=== PATIENT | female | born 1970 | race Caucasian/White ===

== ENCOUNTER → 2018-11-19 | Outpatient (CLI) | payer OTHER ==
[2018-11-19 08:14] LABS: ABSOLUTE BASOPHILS # (AUTO) 0.1 10^3/uL (0.0-0.2); ABSOLUTE EOSINOPHILS # (AUTO) 0.3 10^3/uL (0.0-0.6); ABSOLUTE LYMPHOCYTES (AUTO) 1.1 10^3/uL (0.5-4.7); ABSOLUTE MONOCYTES (AUTO) 0.6 10^3/uL (0.1-1.4); ABSOLUTE NEUT (AUTO) 2.9 10^3/uL (1.7-8.2); BASOPHILS % (AUTO) 1.5 % (0-2); EOSINOPHILS % (AUTO) 6.2 % (0-6); HEMATOCRIT 40.9 % (36.0-47.0); HEMOGLOBIN 13.4 g/dL (12.0-15.5); LYMPHOCYTES % (AUTO) 22.3 % (13-45); MEAN CORPUSCULAR HEMOGLOBIN 30.5 pg (27.0-33.4); MEAN CORPUSCULAR HGB CONC 32.8 g/dL (32.0-36.0); MEAN CORPUSCULAR VOLUME 93 fl (80-97); PLATELET COUNT 232 10^3/uL (150-450); RED BLOOD COUNT 4.39 10^6/uL (3.72-5.28); RED CELL DISTRIBUTION WIDTH 13.9 % (11.5-14.0); TOTAL CELLS COUNTED % (AUTO) 100 %; WHITE BLOOD COUNT 5.1 10^3/uL (4.0-10.5)
[2018-11-19 08:34] LABS: ALBUMIN 4.9 g/dL (3.5-5.0); ALKALINE PHOSPHATASE 68 U/L (38-126); ANION GAP 14 (5-19); ASPARTATE AMINO TRANSFERASE 26 U/L (14-36); BILIRUBIN,DIRECT 0.1 mg/dL (0.0-0.4); BILIRUBIN,TOTAL 0.7 mg/dL (0.2-1.3); BLOOD UREA NITROGEN 15 mg/dL (7-20); CALCIUM 9.8 mg/dL (8.4-10.2); CARBON DIOXIDE 23 mmol/L (22-30); CHLORIDE 103 mmol/L (98-107); CHOLESTEROL 227.02 mg/dL (0-200); GLUCOSE 86 mg/dL (75-110); POTASSIUM 4.7 mmol/L (3.6-5.0); TOTAL PROTEIN 8.3 g/dL (6.3-8.2); TRIGLYCERIDES 69 mg/dL (<150)
[2018-11-19 08:45] LABS: DIRECT LDL 113 mg/dL (<100)
== END ==
LOC: LAB 07:59
PROVIDERS: ATTEND Family Medicine
DX: Z13.1 Encounter for screening for diabetes mellitus (principal); E03.9 Hypothyroidism, unspecified; Z13.220 Encounter for screening for lipoid disorders
CPT/HCPCS: 36415; 80053; 80061; 84443; 85025

== ENCOUNTER → 2018-12-27 | Outpatient (CLI) | payer OTHER ==
--- NOTE | 2018-12-27 15:20 | RADIOLOGY REPORT (SQ) ---
EXAM DESCRIPTION: CAROTID DOPPLER COMPLETED DATE/TIME: 12/27/2018 3:03 pm REASON FOR STUDY: SYNCOPE WITH COLLAPSE R55 SYNCOPE AND COLLAPSE COMPARISON: None. TECHNIQUE: Grayscale ultrasound, Doppler velocity and spectra, and color Doppler images acquired of the extra-cranial carotid and vertebral arteries. Images stored on PACS. LIMITATIONS: None. FINDINGS: RIGHT CAROTID CCA Velocities: Within normal limits. ICA Velocities Peak systolic 117 cm/s. End diastolic 63 cm/s. Proximal ICA/CCA peak systolic ratio 1.20. Spectra normal. No significant plaque. LEFT CAROTID CCA Velocities: Within normal limits. ICA Velocities Peak systolic 111 cm/s. End diastolic 57 cm/s. Proximal ICA/CCA peak systolic ratio 1.11. Spectra normal. No significant plaque. VERTEBRAL ARTERIES: Antegrade flow. Normal waveforms. SUBCLAVIAN ARTERIES: No finding. OTHER: No other significant finding. IMPRESSION: NO HEMODYNAMICALLY SIGNIFICANT STENOSIS. COMMENT: Quality ID #[id number]: Velocity criteria are extrapolated from the diameter data as defined by t he Society of Radiologists in Ultrasound Consensus Conference. Radiology 2003: 229; 340-346. TECHNICAL DOCUMENTATION: JOB ID: [id number]- All Rights Reserved Reading location - IP/workstation name: [email or web address]
--- NOTE | 2018-12-27 18:08 | XCELERA REPORT ---
[address] [address] Transthoracic Echocardiogram Report Name: ALFREDO LAKE Age: 48 yrs Gender: Female : 1970 Patient Status: Outpatient Patient Location: Study Date: 12/27/2018 11:22 AM Height: 60 in Weight: 135 lb BSA: 1.6 m2 Reason For Study: SYNCOPE WITH COLLAPSE Ordering Physician: LINDA JIANG Performed By: Kevyn Rico Interpretation Summary No structural heart disease to cause syncope and collapse. Normal LVEF with no LVH and no LV diastolic dysfunction. No increased LVOT gradient or , MVP. Unable to assess RVSP to r/o pulm hypertension. No RWMA to suggest CAD. No LA myxoma. Normal RV, no suggestion of ARVC. MMode/2D Measurements & Calculations RVDd: 2.8 cm LVIDd: 4.2 cm FS: 37.2 % Ao root diam: 2.9 cm IVSd: 0.82 cm LVIDs: 2.6 cm EDV(Teich): Ao root area: LVPWd: 0.95 cm 78.9 ml ESV(Teich): 6.4 cm2 25.6 ml LA dimension: 2.9 cm EF(Teich): 67.5 % LVLd ap4: 8.1 cm SV(MOD-sp4): EDV(MOD-sp4): 47.0 ml 69.0 ml LVLs ap4: 6.7 cm ESV(MOD-sp4): 22.0 ml EF(MOD-sp4): 68.1 % Doppler Measurements & Calculations MV E max ara: MV P1/2t max ara: Ao V2 max: LV V1 max P.5 cm/sec 101.2 cm/sec 149.3 cm/sec 5.5 mmHg MV A max ara: MV P1/2t: 79.4 msec Ao max P.9 mmHgLV V1 max: 94.0 cm/sec 117.3 cm/sec MV E/A: 1.1 MVA(P1/2t): 2.8 cm2 MV dec slope: 373.3 cm/sec2 MV dec time: 0.22 sec PA V2 max: PI end-d ara: MV P1/2t-pr_phl: 82.7 cm/sec 77.3 cm/sec 79.4 msec PA max P.7 mmHg Left Ventricle The left ventricle is normal in size. There is normal left ventricular wall thickness. The left ventricular ejection fraction is normal. LV EF is 65%. Doppler measurements suggest normal left ventricular diastolic function. No regional wall motion abnormalities noted. There is no thrombus. Right Ventricle The right ventricle is normal size. Atria The right atrium is normal. The left atrial size is normal. The interatrial septum is intact with no evidence for an atrial septal defect. Mitral Valve The mitral valve is normal in structure and function. There is no evidence of mitral valve prolapse. There is no mitral valve stenosis. There is no mitral regurgitation noted. Aortic Valve The aortic valve is trileaflet. The aortic valve opens well. There is no aortic valvular vegetation. There is no aortic valve stenosis. No aortic regurgitation is present. Tricuspid Valve The tricuspid valve is not well visualized secondary to technical limitations. There is a trace or physiologic amount of tricuspid regurgitation. Pulmonic Valve There is a trace or physiologic amount of pulmonic regurgitation. Great Vessels The aortic root is not well visualized. The inferior vena cava appeared normal. Effusions Minimal pericardial effusion. I WMSI = 1.00 % Normal = 100 Segments Size X - Cannot 2 - 4 - 1-2 small Interpret 1 - Normal Hypokinetic 3 - AkineticDyskinetic 3-5 moderate 5 - 6-14 large Aneurysmal 15-16 diffuse : LINDA JIANG, Sander
== END ==
LOC: SP 09:38
PROVIDERS: ATTEND Family Medicine
DX: R55 Syncope and collapse (principal)
CPT/HCPCS: 93306; 93880

== ENCOUNTER → 2019-01-28 | Outpatient (CLI) | payer OTHER | LOC: LAB 10:03 | PROVIDERS: ATTEND Family Medicine | DX: E03.9 Hypothyroidism, unspecified (principal) | CPT/HCPCS: 36415; 84443 ==

== ENCOUNTER → 2019-07-25 | Outpatient (CLI) | payer OTHER | LOC: OD 12:22 | PROVIDERS: ATTEND Family Medicine | DX: E03.9 Hypothyroidism, unspecified (principal); Z13.1 Encounter for screening for diabetes mellitus; Z13.220 Encounter for screening for lipoid disorders | CPT/HCPCS: 36415; 84436; 84443; 84480 ==

== ENCOUNTER → 2019-08-06 | Outpatient (CLI) | payer OTHER ==
--- NOTE | 2019-08-06 14:28 | WOMENS IMAGING REPORT ---
EXAM DESCRIPTION: BILAT DIG DX MAMMO NO CHG; U/S BREAST UNILATERAL, COMPL IMAGES COMPLETED DATE/TIME: 08/06/2019 1:11 pm; 08/06/2019 2:04 pm REASON FOR STUDY: N63.20 UNSPECIFIED LUMP IN THE LEFT BREAST, UNSPECIFIED QUADRANT; N63.[address] N63.20 UNSPECIFIED LUMP IN THE LEFT BREAST, UNSPECIFIED QUAD COMPARISON: 2019 EXAM PARAMETERS: Standard craniocaudal and mediolateral oblique views of each breast recorded using digital acquisition. True lateral and cone compression views both breasts. 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 FINDINGS: RIGHT BREAST MASSES: Dominant smooth mass 9 o'clock about 3 cm deep to the nipple. Smaller than on the prior cons istent with benign cyst. CALCIFICATIONS: No new or suspicious calcifications. ARCHITECTURAL DISTORTION: None. ASYMMETRY: None noted. OTHER: No other significant findings. LEFT BREAST MASSES: Dominant mass upper outer quadrant corresponding to palpable abnormality. CALCIFICATIONS: No new or suspicious calcifications. ARCHITECTURAL DISTORTION: None. ASYMMETRY: None noted. OTHER: No other significant finding. Ultrasound of the left breast demonstrates benign cysts, the largest 2 cm corresponding to the palpab le abnormality. IMPRESSION: Benign cyst bilaterally. BREAST DENSITY: b. There are scattered areas of fibroglandular density. BIRAD: ASSESSMENT: 2 Benign findings. RECOMMENDATION: RECOMMENDED FOLLOW UP: Birads 1 or 2: The patient should resume routine screening . SPECIFIC INTERVENTION/IMAGING/CONSULTATION RECOMMENDED:No additional intervention/ imaging/consultati on needed at this time. COMMUNICATION:The imaging findings were not discussed with the patient. Her referring provider has be en notified of the findings. COMMENT: The patient has been notified of the results by letter per SA requirements. Additional no tification policies are in place for contacting patient with suspicious or incomplete findings. Quality ID #[id number]: The [employer] recommends an annual screening mammogram for women aged 40 years or over. This facility utilizes a reminder system to ensure that all patients receive reminder letters, and/or direct phone calls for appointments. This includes reminders for routine scr eening mammograms, diagnostic mammograms, or other Breast Imaging Interventions when appropriate. Th is patient will be placed in the appropriate reminder system. TECHNICAL DOCUMENTATION: FINDING NUMBER: (1) ASSESSMENT: (1) JOB ID: [id number] 2010 [employer]- All Rights Reserved Reading location - IP/workstation name: [email or web address]
== END ==
LOC: WI 12:40
PROVIDERS: ATTEND Family Medicine
DX: N63.20 Unspecified lump in the left breast, unspecified quadrant (principal)
CPT/HCPCS: 76641

== ENCOUNTER 2019-08-17 12:28 | Emergency (ER) | payer OTHER ==
[2019-08-17 12:34] VITALS: BP 121/82
[2019-08-17] MEDS ORDERED: KETOROLAC TROMETHAMINE INJ/PF 30 MG/1 ML SDV IM ONE (12:48)
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
== END 2019-08-17 12:52 | disposition home or self-care (01) ==
LOC: ER 12:28
DX: S16.1XXA Strain of muscle, fascia and tendon at neck level, initial encounter (principal); S09.90XA Unspecified injury of head, initial encounter; M54.2 Cervicalgia; M54.6 Pain in thoracic spine; V87.7XXA Person injured in collision between other specified motor vehicles (traffic), initial encounter; Z79.899 Other long term (current) drug therapy
CPT/HCPCS: 99283; 96372; J1885

== ENCOUNTER → 2019-08-27 | Outpatient (CLI) | payer OTHER ==
--- NOTE | 2019-08-27 14:51 | XCELERA REPORT ---
[address] [address] Transthoracic Echocardiogram Report Name: ALFREDO LAKE Age: 49 yrs Gender: Female : 1970 Patient Status: Outpatient Patient Location: Study Date: 08/27/2019 08:19 AM Height: 61 in Weight: 132 lb BSA: 1.6 m2 Procedure: A two-dimensional transthoracic echocardiogram with color flow and Doppler was performed. Study Quality: Good. Reason For Study: SOB History: Shortness of breath. Ordering Physician: J CARLOS RIVERA Performed By: Fransisca Whitehead Interpretation Summary The left ventricle is normal in size. There is normal left ventricular wall thickness. LV EF is GREATER THAN 65% Left ventricular systolic function is normal. Doppler measurements suggest normal left ventricular diastolic function The left ventricular wall motion is normal. There is no thrombus. No ASD,VSD,or PFO seen. The right atrium is normal. The left atrial size is normal. The right ventricle is normal in size and function. There is no evidence of mitral valve prolapse. There is no vegetation seen on the mitral valve. There is no mitral valve stenosis. There is a trace amount of mitral regurgitation There is no aortic valvular vegetation. There is no aortic valve stenosis There is no LVOT obstruction. No aortic regurgitation is present. There is no tricuspid stenosis. There is a trace amount of tricuspid regurgitation Right ventricular systolic pressure is at the upper limits of normal RVSP is upper limits of normal.RVSP is 25 to 30 mm of Hg , with RA mean of 5 to 10. There is no pulmonic valvular stenosis. There is no pulmonic valvular regurgitation. The aortic root is normal size. The inferior vena cava appeared normal and decreased > 50% with respiration (RAP 5-10 mmHg) There is no pericardial effusion. MMode/2D Measurements & Calculations RVDd: 2.0 cm LVIDd: 4.2 cm FS: 37.4 % Ao root diam: 2.3 cm IVSd: 0.89 cm LVIDs: 2.6 cm EDV(Teich): 76.4 ml Ao root area: 4.3 cm2 LVPWd: 0.89 cm ESV(Teich): 24.5 ml LA dimension: 2.8 cm EF(Teich): 67.9 % Doppler Measurements & Calculations MV E max ara: MV P1/2t max ara: Ao V2 max: LV V1 max P.4 cm/sec 120.9 cm/sec 146.6 cm/sec 5.1 mmHg MV A max ara: MV P1/2t: 62.9 msec Ao max P.6 mmHgLV V1 max: 89.3 cm/sec MVA(P1/2t): 3.5 cm2 112.5 cm/sec MV E/A: 1.3 MV dec slope: 563.1 cm/sec2 MV dec time: 0.20 sec PA V2 max: TR max ara: MV P1/2t-pr_phl: 73.5 cm/sec 225.9 cm/sec 62.9 msec PA max P.2 mmHgTR max P.4 mmHg Left Ventricle The left ventricle is normal in size. There is normal left ventricular wall thickness. LV EF is GREATER THAN 65%. Left ventricular systolic function is normal. Doppler measurements suggest normal left ventricular diastolic function. The left ventricular wall motion is normal. There is no thrombus. No ASD,VSD,or PFO seen. Right Ventricle The right ventricle is normal in size and function. Atria The right atrium is normal. The left atrial size is normal. Mitral Valve There is no evidence of mitral valve prolapse. There is no vegetation seen on the mitral valve. There is no mitral valve stenosis. There is a trace amount of mitral regurgitation. Aortic Valve There is no aortic valvular vegetation. There is no aortic valve stenosis. There is no LVOT obstruction. No aortic regurgitation is present. Tricuspid Valve There is no tricuspid stenosis. There is a trace amount of tricuspid regurgitation. Right ventricular systolic pressure is at the upper limits of normal. RVSP is upper limits of normal.RVSP is 25 to 30 mm of Hg , with RA mean of 5 to 10. Pulmonic Valve There is no pulmonic valvular stenosis. There is no pulmonic valvular regurgitation. Great Vessels The aortic root is normal size. The inferior vena cava appeared normal and decreased > 50% with respiration (RAP 5-10 mmHg). Effusions There is no pericardial effusion. : J CARLOS RIVERA Lakshmi
== END ==
LOC: SP 07:40
PROVIDERS: ATTEND Family Medicine Geriatric Medicine
DX: R06.02 Shortness of breath (principal)
CPT/HCPCS: 93306

== ENCOUNTER → 2019-10-17 | Outpatient (CLI) | payer OTHER | LOC: OD 07:56 | PROVIDERS: ATTEND Family Medicine | DX: E03.9 Hypothyroidism, unspecified (principal); Z13.1 Encounter for screening for diabetes mellitus; Z13.220 Encounter for screening for lipoid disorders | CPT/HCPCS: 36415; 84436; 84443; 84480 ==

== ENCOUNTER → 2020-01-07 | Outpatient (CLI) | payer OTHER ==
--- NOTE | 2020-01-07 16:43 | RADIOLOGY REPORT (SQ) ---
EXAM DESCRIPTION: KNEE RIGHT 2 VIEWS IMAGES COMPLETED DATE/TIME: 01/07/2020 4:33 pm REASON FOR STUDY: (M25.561)PAIN IN RIGHT KNEE M25.561 PAIN IN RIGHT KNEE COMPARISON: None. NUMBER OF VIEWS: Two views. TECHNIQUE: AP and lateral radiographic images acquired of the right knee. LIMITATIONS: None. FINDINGS: MINERALIZATION: Normal. BONES: No acute fracture or dislocation. No worrisome bone lesions. No significant osteophytes. JOINT: No effusion. No chondrocalcinosis. OTHER: No other significant finding. IMPRESSION: NEGATIVE STUDY OF THE RIGHT KNEE. NO EXPLANATION FOR PAIN. TECHNICAL DOCUMENTATION: JOB ID: [id number] 2010 [employer]- All Rights Reserved Reading location - IP/workstation name: [email or web address]
== END ==
LOC: RAD 16:22
PROVIDERS: ATTEND Family Medicine
DX: M25.561 Pain in right knee (principal)

== ENCOUNTER → 2020-02-14 | Outpatient (CLI) | payer OTHER ==
[~2020-02-14] MED LIST: COVID-19 VACCINE (PFIZER)/PF 30 MCG/0.3 ML VIAL IM ONE; EPINEPHRINE INJ/PF 1 MG/1 ML AMPULE IM PRN
== END ==
LOC: EMPHEALTH 10:39
PROVIDERS: ATTEND Internal Medicine
DX: Z23 Encounter for immunization (principal)
CPT/HCPCS: 91300

== ENCOUNTER → 2020-03-06 | Outpatient (CLI) | payer OTHER | LOC: EMPHEALTH 10:31 | PROVIDERS: ATTEND Internal Medicine | DX: Z23 Encounter for immunization (principal) | CPT/HCPCS: 91300 ==